=== PATIENT | female | born 1995 | race Caucasian/White ===

== ENCOUNTER 2017-07-07 16:20 | Emergency (ER) | payer OTHER ==
--- NOTE | 2017-07-07 16:39 | PDOC ---
Attending Attestation - Resident Resident Name: Phillip Marvinica - HPI HPI: 07/07/17 19:16 Pt presents to the ED complaining of nausea and vomiting after a night of heavy drinking. Denies fever or abdominal pain. - Physicial Exam PE: 07/07/17 19:17 Agree with resident exam. Abdomen is non tender on my exam. Patient is well appearing and in no acute distress. - Medical Decision Making 07/07/17 19:19 Pt presents to the ED complaining of persistent nausea and vomiting after an episode of heavy drinking. Symptoms are most consistent with gastritis, but will send labs to screen for biliary disease and electrolyte disturbance. Will check test. Will reassess.
[2017-07-07] MEDS ORDERED: ONDANSETRON 8 MG TABLET (FP) PO ONE ×2 (16:45→17:45)
[2017-07-07] MEDS ORDERED: SODIUM CHLORIDE 0.9% 500 ML INFUS.BAG IV ONE (16:45)
--- NOTE | 2017-07-07 16:51 | PDOC ---
History of Present Illness - General Stated Complaint: NAUSEA,VOMITING Time Seen by Provider: 07/07/17 16:39 History Source: Patient - History of Present Illness Initial Comments: 07/07/17 16:47 22 y.o. female with no reported PMH who presents c/o nausea + vomiting. Patient c/o multiple episodes of brown colored, non-bloody emesis since 9 a.m. this morning with no associated abdominal pain, GI (constipation/diarrhea) or (dysuria/hematuria) symptoms. Patient states she drank 2 cups of Walker this morning which she relates to her symptoms. Patient notes prior to this morning, her last alcoholic drink was last month. Patient cannot recall the last time she experienced acoholic hangover but denies any h/o DT's. Patient states her LMP was earlier this month and she denies any possibility of . NKDA Surgical: denies Social: denies nicotine, 3-4 alcoholic drinks/monthly, denies recreational drugs PMD: None Past History - Past Medical History Allergies/Adverse Reactions: Allergies Allergy/AdvReac Type Severity Reaction Status Date / Time No Known Allergies Allergy Verified 07/07/17 17:16 Home Medications: Ambulatory Orders NK [No Known Home Medication] 07/07/17 Review of Systems - Review of Systems Constitutional: No: Chills, Fever HEENTM: No: Blurred Vision, Double Vision Respiratory: No: Cough, Shortness of Breath Cardiac (ROS): No: Chest Pain, Lightheadedness, Palpitations, Syncope ABD/GI: Yes: Nausea, Poor Fluid Intake, Vomiting. No: Constipated, Diarrhea : No: Burning, Dysuria Neurological: No: Headache, Numbness Psychiatric: No: Anxiety, Depression *Physical Exam - Physical Exam Comments: 07/07/17 18:16 GENERAL: Awake, alert, and fully oriented, in no acute distress HEAD: No signs of trauma EYES: PERRLA, EOMI, sclera anicteric, conjunctiva clear ENT: Auricles normal inspection, hearing grossly normal, nares patent, oropharynx clear without exudates. Moist mucosa NECK: Normal ROM, supple, no lymphadenopathy, JVD, or masses LUNGS: Breath sounds equal, clear to auscultation bilaterally. No wheezes, and no crackles HEART: Regular rate and rhythm, normal S1 and S2, no murmurs, rubs or gallops ABDOMEN: Soft, nontender, normoactive bowel sounds. No guarding, no rebound. No masses EXTREMITIES: Normal range of motion, no edema. No clubbing or cyanosis. No cords , erythema, or tenderness BACK: No midline spinal tenderness in cervical/thoracic/lumbar region NEUROLOGICAL: Normal speech, cranial nerves intact, negative pronator drift, 5/ 5 strength in all 4 extremities, normal sensation to light touch in all 4 extremities, normal cerebellar exam, normal gait, normal reflexes and tone SKIN: Warm, Dry, normal turgor, no rashes or lesions noted. ED Treatment Course - LABORATORY CBC & Chemistry Diagram: 07/07/17 17:50 07/07/17 17:50 Medical Decision Making - Medical Decision Making 07/07/17 18:59 22 y.o. female presents with 1 day h/o brown colored emesis and nausea likely 2/ 2 to alcohol intoxication. Zofran for nausea + IV hydration. Will obtain CMP for any electrolyte derangement 2/2 to vomiting. Serum pending. Patient signed out to Dr. Baugh (Resident) and Dr. Melchor (Attending). *DC/Admit/Observation/Transfer Diagnosis at time of Disposition: Vomiting - Discharge Dispostion Disposition: HOME Condition at time of disposition: Good - Referrals - Patient Instructions Printed Discharge Instructions: DI for Vomiting -- Adult Additional Instructions: Please return if you have any new, worsening or concerning symptoms. Please follow up with your primary care physician this week. - Post Discharge Activity
[2017-07-07 17:20] VITALS: BP 130/88; PULSE 82; TEMP 97.2; BMI 24.1
[2017-07-07 18:09] LABS: BASO % 0.1 % (0-2.0); HEMATOCRIT 39.9 % (32.4-45.2); HEMOGLOBIN 13.3 GM/dL (10.7-15.3); LYMPH % 5.6 % (8-40); MCH 29.4 pg (25.7-33.7); MCHC 33.4 g/dl (32.0-36.0); MEAN CELL VOLUME 87.8 fl (80-96); MEAN PLT VOLUME 8.5 fl (7.5-11.1); MONO % 3.1 % (3.8-10.2); NEUT % 91.2 % (42.8-82.8); PLATELET COUNT 238 K/MM3 (134-434); RBC 4.54 M/mm3 (3.60-5.2); RDW 13.5 % (11.6-15.6); WHITE BLOOD COUNT 11.6 K/mm3 (4.0-10.0)
--- NOTE | 2017-07-07 19:36 | PDOC ---
*Physical Exam - Vital Signs Last Vital Signs Temp Pulse Resp BP Pulse Ox 97.2 F L 82 18 130/88 100 07/07/17 16:20 07/07/17 16:20 07/07/17 16:20 07/07/17 16:20 07/07/17 16:20 - Physical Exam Comments: 07/07/17 19:56 GENERAL: Awake, alert, and fully oriented, in no acute distress HEAD: No signs of trauma, normocephalic, atraumatic EYES: PERRLA, EOMI, sclera anicteric, conjunctiva clear ENT: Auricles normal inspection, hearing grossly normal, nares patent, oropharynx clear without exudates. Moist mucosa EXTREMITIES: Normal inspection, Normal range of motion, no edema. No clubbing or cyanosis. NEUROLOGICAL: Cranial nerves II through XII grossly intact. Normal speech, normal gait, no focal sensorimotor deficits SKIN: Warm, Dry, normal turgor, no rashes or lesions noted. ED Treatment Course - LABORATORY CBC & Chemistry Diagram: 07/07/17 17:50 07/07/17 17:50 - ADDITIONAL ORDERS Additional order review: Laboratory Results 07/07/17 07/07/17 17:50 17:50 Sodium Cancelled Potassium Cancelled Chloride Cancelled Carbon Dioxide Cancelled Anion Gap Cancelled BUN Cancelled Creatinine Cancelled Creat Clearance w eGFR Cancelled Random Glucose Cancelled Calcium Cancelled Total Bilirubin Cancelled AST Cancelled ALT Cancelled Alkaline Phosphatase Cancelled Total Protein Cancelled Albumin Cancelled Serum , Qual Cancelled 07/07/17 17:50 RBC 4.54 MCV 87.8 MCHC 33.4 RDW 13.5 MPV 8.5 Neutrophils % 91.2 H Lymphocytes % 5.6 L Monocytes % 3.1 L Eosinophils % 0.0 Basophils % 0.1 - Medications Given in the ED: ED Medications Discontinued Medications Generic Name Dose Route Start Last Admin Trade Name Freq PRN Reason Stop Dose Admin Ondansetron HCl 8 mg 07/07/17 16:45 07/07/17 17:52 Zofran - PO 07/07/17 16:46 8 mg ONCE ONE Administration Sodium Chloride 1,000 ml 07/07/17 16:45 07/07/17 17:52 Normal Saline - IV 07/07/17 16:46 1,000 ml ONCE ONE Administration Medical Decision Making - Medical Decision Making 07/07/17 19:[address] Marvin. Patient is 22F here today with several episodes of vomiting. CBC reassuring. CMP/Preg pending. 07/07/17 19:56 Patient refusing any blood draws or further workup. Asking to go home. Tolerating PO. Will discharge. *DC/Admit/Observation/Transfer Diagnosis at time of Disposition: Vomiting - Discharge Dispostion Disposition: HOME Condition at time of disposition: Good Admit: No - Referrals - Patient Instructions Printed Discharge Instructions: DI for Vomiting -- Adult Additional Instructions: Please return if you have any new, worsening or concerning symptoms. Please follow up with your primary care physician this week. - Post Discharge Activity
== END 2017-07-07 20:04 | disposition home or self-care (01) ==
LOC: JER 16:20
DX: F10.10 Alcohol abuse, uncomplicated (principal); R11.2 Nausea with vomiting, unspecified
CPT/HCPCS: 36415; 85025; 99283-25

== ENCOUNTER 2018-02-04 13:41 | Emergency (ER) | payer OTHER ==
[2018-02-04 14:04] VITALS: BP 120/80; PULSE 85; TEMP 99.7; BMI 25.9
--- NOTE | 2018-02-04 15:00 | PDOC ---
History of Present Illness - General Chief Complaint: Pain Stated Complaint: PAIN Time Seen by Provider: 02/04/18 14:54 History Source: Patient Exam Limitations: No Limitations - History of Present Illness Travel History: No Initial Comments: 02/04/18 14:55 Patient states took home test was positive. Has abdominal pain and cramping, breast tenderness, and has not had a normal menses since December 23. Denies fever however has nausea and some vomiting. G2,Ab1,P1 Timing/Duration: reports: getting worse Quality: reports: cramping Abdominal Pain Onset Location: reports: generalized abdomen Past History - Travel Traveled outside of the country in the last 30 days: No Close contact w/someone who was outside of country & ill: No - Past Medical History Allergies/Adverse Reactions: Allergies Allergy/AdvReac Type Severity Reaction Status Date / Time No Known Allergies Allergy Verified 02/04/18 14:03 Home Medications: Ambulatory Orders Vitamins (Sjr) - 1 tab PO DAILY #30 tablet 02/04/18 COPD: No - Suicide/Smoking/Psychosocial Hx Smoking History: Never smoked Have you smoked in the past 12 months: No Information on smoking cessation initiated: No Hx Alcohol Use: No Drug/Substance Use Hx: No Substance Use Type: Marijuana Review of Systems - Review of Systems Able to Perform ROS?: Yes Is the patient limited Guamanian proficient: Yes Constitutional: Yes: Symptoms Reported, See HPI, Malaise. No: Fever HEENTM: Yes: Symptoms Reported : Yes: Symptoms Reported, Dysuria Integumentary: Yes: See HPI. No: Symptoms Reported Neurological: Yes: See HPI. No: Symptoms reported All Other Systems: Reviewed and Negative *Physical Exam - Vital Signs Last Vital Signs Temp Pulse Resp BP Pulse Ox 99.7 F H 85 16 120/80 99 02/04/18 14:01 02/04/18 14:01 02/04/18 14:01 02/04/18 14:01 02/04/18 14:01 - Physical Exam General Appearance: Yes: Nourished, Appropriately Dressed, Mild Distress HEENT: positive: EFRA, Normal ENT Inspection, TMs Normal, Pharynx Normal Neck: negative: Tender Respiratory/Chest: positive: Lungs Clear Gastrointestinal/Abdominal: positive: Normal Bowel Sounds, Tender (mild diffuse / no rebound or guarding ), Soft Extremity: positive: Normal Capillary Refill, Normal Inspection, Normal Range of Motion Integumentary: positive: Normal Color, Warm, Pale 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 Patient encouraged to follow-up at [facility] or clinic for care. vitamins prescribed for her *DC/Admit/Observation/Transfer Diagnosis at time of Disposition: Qualifiers: Weeks of gestation: unspecified Qualified Code(s): Z34.90 - Encounter for supervision of normal , unspecified, unspecified trimester - Discharge Dispostion Disposition: HOME Condition at time of disposition: Stable Decision to Admit order: No - Prescriptions Prescriptions: Vitamins (Sjr) - 1 tab PO DAILY #30 tablet - Referrals Referrals: [facility] [Outside] - Patient Instructions Printed Discharge Instructions: DI for -- Discomforts and Remedies Additional Instructions: Rest, drink lots of fluids: Teas, water, soups Dianne iris, carbonated beverages for the bubbles May try peppermint teas Avoid heavy , spicy or fatty foods until symptoms have resolved Continue [id number] medications for symptomatic relief Tylenol or Motrin for fever and pain vitamins daily Followup with private physician in one to 2 days as needed Return to emergency department for worsened symptoms, fevers, dehydration - Post Discharge Activity Forms/Work/School Notes: Back to Work
[2018-02-04 15:07] LABS: HCG,QUALITATIVE URINE Positive
[2018-02-04 15:25] LABS: URINE APPEARANCE CLOUDY; URINE BILIRUBIN NEGATIVE (<2.0 mg/dL); URINE COLOR YELLOW; URINE GLUCOSE (UA) NEGATIVE (NEGATIVE); URINE KETONE NEGATIVE (NEGATIVE); URINE LEUK ESTERASE NEGATIVE (NEGATIVE); URINE NITRITE NEGATIVE (NEGATIVE); URINE PROTEIN NEGATIVE (NEGATIVE); URINE UROBILINOGEN NEGATIVE mg/dL (0.2-1.0)
== END 2018-02-04 15:48 | disposition home or self-care (01) ==
LOC: JERFT 13:41
DX: Z34.90 Encounter for supervision of normal pregnancy, unspecified, unspecified trimester (principal)
CPT/HCPCS: 81003; 84703; 99281-25

== ENCOUNTER 2018-07-02 11:56 | Emergency (ER) | payer OTHER ==
[2018-07-02 12:07] VITALS: BP 115/50; PULSE 105; TEMP 98.3; BMI 27.9
[2018-07-02] MEDS ORDERED: BACITRACIN 15 GM TUBE TOPICAL OINTMENT ONE (12:32)
[2018-07-02] MEDS ORDERED: BACITRACIN 15 GM TUBE TOPICAL OINTMENT TP ONE (12:35)
--- NOTE | 2018-07-02 12:41 | PDOC ---
History of Present Illness - General Chief Complaint: Wound Stated Complaint: RT FOOT INJURY Time Seen by Provider: 07/02/18 12:16 History Source: Patient Exam Limitations: No Limitations - History of Present Illness Initial Comments: 07/02/18 8 pain to left great toe. States received a pedicure and April and developed appear neck ill infection. Has been self treating and including excision of ingrown toenails. But states has progressively become more painful and more swollen with an extra growth to the lateral aspect of her left great toe. Denies purulent drainage, but is painful. Occurred: reports: other (3 mos ago - developed a paronychia to left great toe and has been trying to exercise ingrown toenail since. States is progressively worsened where she has tenderness in an overgrowth now. Denies fever, denies purulent drainage at site.) Severity: reports: mild Pain Location: reports: lower extremity Associated Symptoms (Fall): denies symptoms Past History - Travel Traveled outside of the country in the last 30 days: No Close contact w/someone who was outside of country & ill: No - Past Medical History Allergies/Adverse Reactions: Allergies Allergy/AdvReac Type Severity Reaction Status Date / Time No Known Allergies Allergy Verified 07/02/18 12:04 Home Medications: Ambulatory Orders Vitamins (Sjr) - 1 tab PO DAILY #30 tablet 02/04/18 COPD: No - Suicide/Smoking/Psychosocial Hx Smoking History: Former smoker Have you smoked in the past 12 months: No Information on smoking cessation initiated: No Hx Alcohol Use: No Drug/Substance Use Hx: No Substance Use Type: Marijuana *Physical Exam - Vital Signs Last Vital Signs Temp Pulse Resp BP Pulse Ox 98.3 F 105 H 18 115/50 L 98 07/02/18 12:05 07/02/18 12:05 07/02/18 12:05 07/02/18 12:05 07/02/18 12:05 - Physical Exam General Appearance: Yes: Nourished, Appropriately Dressed, Apparent Distress HEENT: positive: EFRA, Normal ENT Inspection Neck: negative: Tender Extremity: positive: Normal Capillary Refill, Normal Range of Motion, Other ( has overgrowth of skin consistent with a pyogenic granuloma to the medial aspect of left great toenail. No fluctuance, no purulent drainage, has full range of motion and no streaking.). 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, Fully Oriented, Alert, Normal Mood/ Affect, Normal Response, Motor Strength 5/5 Moderate Sedation - Procedure Monitoring Vital Signs: Procedure Monitoring Vital Signs Temperature 98.3 F 07/02/18 12:05 Pulse Rate 105 H 07/02/18 12:05 Respiratory Rate 18 07/02/18 12:05 Blood Pressure 115/50 L 07/02/18 12:05 O2 Sat by Pulse Oximetry (%) 98 07/02/18 12:05 *DC/Admit/Observation/Transfer Diagnosis at time of Disposition: Granuloma, pyogenic - Discharge Dispostion Disposition: HOME Condition at time of disposition: Stable Decision to Admit order: No - Referrals Referrals: Mayuri Mayorga MD [Primary Care Provider] - Lani Wiseman MD [Staff Physician] - - Patient Instructions Printed Discharge Instructions: DI for Paronychia Additional Instructions: Rest, keep foot elevated Avoid heavy lifting or strenuous activity until healed Soak finger every 2-3 hours while awake for the next 2-3 days to keep continue to allow drainage Reapply bacitracin ointment and bulky dressing after each soaking May use Tylenol for pain relief Followup with private physician in one to 2 days for wound check as needed Return immediately to emergency department or private doctor's for worsening redness, swelling, pain, streaking - Post Discharge Activity
== END 2018-07-02 12:46 | disposition home or self-care (01) ==
LOC: JERFT 11:56
DX: L98.0 Pyogenic granuloma (principal)
CPT/HCPCS: 99281-25

== ENCOUNTER 2018-10-11 11:20 | Inpatient (IN) | payer OTHER | END 2018-10-14 12:30 | disposition home or self-care (01) | LOC: JDEL 11:20 → J3W 10-13 00:45 → JLDR 10-12 03:30 ==

== ENCOUNTER 2019-06-18 05:30 | Emergency (ER) | payer OTHER ==
[2019-06-18 06:18] VITALS: BMI 24.3
[2019-06-18] MEDS ORDERED: ACETAMINOPHEN 500 MG TABLET (FP) PO ONE (07:24)
[2019-06-18] MEDS ORDERED: ACETAMINOPHEN 325 MG TABLET (FP) ONE (07:27)
[2019-06-18] MEDS ORDERED: IBUPROFEN 600 MG TABLET (FP) PO ONE ×2 (07:40→07:44)
--- NOTE | 2019-06-18 07:40 | PDOC ---
History of Present Illness - General History Source: Patient Exam Limitations: Clinical Condition - History of Present Illness Initial Comments: 06/18/19 07:36 Patient with no significant past medical history present with complaint of 3- day history of nasal congestion, fevers, dry cough, body aches and bilateral ear pain which she describes as pressure in the ear. Patient family members sick with similar symptoms. Patient did not get a flu vaccine. Denies recent travel. Patient has not taken anything for symptoms. Denies sore throat, nausea, vomiting, abdominal pain, chest pain, dizziness. Denies any other symptoms Is this a multiple visit Asthma Patient?: No Timing/Duration: other (3 days) <Milton Montano - Last Filed: 06/18/19 08:02> <Wilian Melchor - Last Filed: 06/18/19 14:53> - General Chief Complaint: Ear Problem Stated Complaint: CONGESTION,EARACHE Time Seen by Provider: 06/18/19 05:35 Past History - Past Medical History Asthma: No Cancer: No Cardiac Disorders: No COPD: No Diabetes: No HTN: No Seizures: No Thyroid Disease: No - Psycho Social/Smoking Cessation Hx Smoking History: Never smoked Have you smoked in the past 12 months: No Information on smoking cessation initiated: No Hx Alcohol Use: No Drug/Substance Use Hx: No Substance Use Type: Marijuana Hx Substance Use Treatment: No <Milton Montano - Last Filed: 06/18/19 08:02> <Wilian Melchor - Last Filed: 06/18/19 14:53> - Past Medical History Allergies/Adverse Reactions: Allergies Allergy/AdvReac Type Severity Reaction Status Date / Time No Known Allergies Allergy Verified 06/18/19 06:17 Home Medications: Ambulatory Orders Vitamins (Sjr) - 1 tab PO DAILY #30 tablet 02/04/18 Benzonatate [Tessalon Pearls -] 100 mg PO Q8H PRN #21 capsule 06/18/19 Ipratropium [place] 2 spray NS BID PRN 5 Days #1 spray 06/18/19 Montelukast Na [Singulair -] 10 mg PO DAILY #7 tablet 06/18/19 Review of Systems - Review of Systems Able to Perform ROS?: Yes Is the patient limited Tristanian proficient: No Constitutional: Yes: Chills, Fever, Malaise HEENTM: Yes: Symptoms Reported, See HPI, Ear Pain (b/l ear pressure), Nose Congestion. No: Eye Pain, Blurred Vision, Tearing, Recent change in vision, Double Vision, Cataracts, Ocular Prothesis, Ear Discharge, Nose Pain, Tinnitus, Nose Bleeding, Hearing Loss, Throat Pain, Throat Swelling, Mouth Pain, Dental Problems, Difficulty Swallowing, Mouth Swelling, Other Respiratory: Yes: Symptoms reported, See HPI, Cough. No: Orthopnea, Shortness of Breath, SOB with Exertion, SOB at Rest, Stridor, Wheezing, Productive cough, Hemoptysis, Other Cardiac (ROS): No: Symptoms Reported, See HPI, Chest Pain, Edema, Irregular Heart Rate, Lightheadedness, Palpitations, Syncope, Chest Tightness, Other ABD/GI: No: Symptoms Reported, See HPI, Abd. Pain w/ defecation, Blood Streaked Bowels, Constipated, Diarrhea, Difficulty Swallowing, Nausea, Poor Appetite, Vomiting, Abdominal cramping Musculoskeletal: No: Symptoms Reported Integumentary: No: Symptoms Reported Neurological: No: Symptoms reported, Headache, Numbness, Dizziness All Other Systems: Reviewed and Negative <Milton Montano Rian - Last Filed: 06/18/19 08:02> *Physical Exam - Vital Signs Last Vital Signs Temp Pulse Resp BP Pulse Ox 103.1 F H 121 H 20 115/56 L 97 06/18/19 05:39 06/18/19 05:39 06/18/19 05:39 06/18/19 05:39 06/18/19 05:39 - Physical Exam 06/18/19 07:39 GENERAL: Well developed, well nourished. Awake and alert. No acute distress. HEENT: Bilateral nasal congestion. Normocephalic, atraumatic. PERRLA, EOMI. No conjunctival pallor. Sclera are non-icteric. Moist mucous membranes. Oropharynx is clear. NECK: Supple. Full ROM. CARDIOVASCULAR: Regular rate and rhythm. No murmurs, rubs, or gallops. Distal pulses are 2+ and symmetric. PULMONARY: No evidence of respiratory distress. Lungs clear to auscultation bilaterally. No wheezing, rales or rhonchi. ABDOMINAL: Soft. Non-tender. Non-distended. No rebound or guarding. No organomegaly. Normoactive bowel sounds. MUSCULOSKELETAL Normal range of motion at all joints. SKIN: Warm and dry. Normal capillary refill. No rashes. No cyanosis NEUROLOGICAL: Alert, awake, appropriate. Gait is normal without ataxia. PSYCHIATRIC: Cooperative. Good eye contact. Appropriate mood General Appearance: Yes: Nourished, Appropriately Dressed. No: Apparent Distress <Milton Montano - Last Filed: 06/18/19 08:02> - Vital Signs Last Vital Signs Temp Pulse Resp BP Pulse Ox 100.0 F H 110 H 18 97/60 96 06/18/19 08:15 06/18/19 08:15 06/18/19 08:15 06/18/19 08:15 06/18/19 08:15 <Wilian Melchor - Last Filed: 06/18/19 14:53> ED Treatment Course - Medications Given in the ED: ED Medications Discontinued Medications Generic Name Dose Route Start Last Admin Trade Name Freq PRN Reason Stop Dose Admin Acetaminophen 1,000 mg 06/18/19 07:24 06/18/19 07:31 Tylenol - PO 06/18/19 07:25 1,000 mg ONCE ONE Administration <Milton Montano - Last Filed: 06/18/19 08:02> - Medications Given in the ED: ED Medications Discontinued Medications Generic Name Dose Route Start Last Admin Trade Name Freq PRN Reason Stop Dose Admin Acetaminophen 1,000 mg 06/18/19 07:24 06/18/19 07:31 Tylenol - PO 06/18/19 07:25 1,000 mg ONCE ONE Administration Ibuprofen 600 mg 06/18/19 07:40 06/18/19 07:48 Motrin - PO 06/18/19 07:41 600 mg ONCE ONE Administration <Wilian Melchor - Last Filed: 06/18/19 14:53> Medical Decision Making - Medical Decision Making 06/18/19 07:37 Patient with no significant past medical history present with complaint of 3- day history of nasal congestion, fevers, dry cough, body aches and bilateral ear pain which she describes as pressure in the ear. Patient family members sick with similar symptoms. Patient did not get a flu vaccine. Denies recent travel. Patient has not taken anything for symptoms. Denies sore throat, nausea, vomiting, abdominal pain, chest pain, dizziness. Denies any other symptoms Exam significant for fever 103.1 F with bilateral nasal congestion otherwise normal exam. Lungs clear to auscultation bilateral. Normal ear exam with no erythema and bilateral ears. Symptoms likely flu versus viral infection. Tylenol 1 g p.o. ordered for fever. Rapid flu test ordered to rule out flu 06/18/19 08:02 Rapid flu positive for influenza B. Patient already out of window treatment and will treat conservatively for viral URI on Tessalon Perles as needed for cough, Atrovent nasal spray for nasal congestion and Singulair with advised to alternate between Tylenol Motrin as needed for fever and increase fluid intake with PCP follow-up <Milton Montano - Last Filed: 06/18/19 08:02> - Medical Decision Making 06/18/19 14:53 I reviewed the case of the mid-level practitioner and was available for consultation while in the emergency department <Wilian Melchor - Last Filed: 06/18/19 14:53> Discharge - Discharge Information Problems reviewed: Yes - Admission No <Milton Montano - Last Filed: 06/18/19 08:02> <Wilian Melchor - Last Filed: 06/18/19 14:53> - Discharge Information Clinical Impression/Diagnosis: Influenza, Viral URI with cough Condition: Stable Disposition: HOME - Additional Discharge Information Prescriptions: Benzonatate [Tessalon Pearls -] 100 mg PO Q8H PRN #21 capsule PRN Reason: Cough Ipratropium [place] 2 spray NS BID PRN 5 Days #1 spray PRN Reason: nasal congestion Montelukast Na [Singulair -] 10 mg PO DAILY #7 tablet - Patient Discharge Instructions Patient Printed Discharge Instructions: DI for Influenza -- Adult Additional Instructions: Your test came back for positive of influenza B which is likely the cause of your symptoms. You are already out of the window treatment given his symptoms being more than 3 days. Take prescribed medication as prescribed for cough and congestion. Alternate between Tylenol and Motrin as needed for fever and increase fluid intake. Follow-up with your primary care as needed - Post Discharge Activity Work/Back to School Note: Back to Work
[2019-06-18 08:19] VITALS: BP 97/60; PULSE 110; TEMP 100
== END 2019-06-18 08:24 | disposition home or self-care (01) ==
LOC: JER 05:30
DX: J11.1 Influenza due to unidentified influenza virus with other respiratory manifestations (principal); J06.9 Acute upper respiratory infection, unspecified; B97.89 Other viral agents as the cause of diseases classified elsewhere
CPT/HCPCS: 87804; 99283-25

== ENCOUNTER 2024-08-06 02:15 | Inpatient (IN) | payer OTHER ==
[2024-08-06 02:56] VITALS: BMI 30.4
[2024-08-06] MEDS: ELECTROLYTE-148 SOLN 1,000 ML IV SCH (03:00)
[2024-08-06] MEDS ORDERED: BUTORPHANOL TARTRATE 2 MG/ML VIAL ONE (03:25)
[2024-08-06] MEDS ORDERED: PROMETHAZINE HCL 25 MG/1 ML VIAL ONE (03:25)
[2024-08-06] MEDS: PROMETHAZINE HCL 25 MG/1 ML VIAL IVPB ONE (03:33)
[2024-08-06] MEDS: BUTORPHANOL TARTRATE 1 MG/ML VIAL IVPB ONE (03:33)
[2024-08-06 03:35] LABS: BASOPHILS # 0.03 x10^3/uL (0.01-0.08); EOSINOPHIL % 0.4 % (0.7-5.8); EOSINOPHILS # 0.04 x10^3/uL (0.04-0.36); HEMATOCRIT 33.4 % (34.1-44.9); HEMOGLOBIN 10.9 g/dL (11.2-15.7); MCHC 32.6 g/dl (32.2-35.5); MEAN CELL VOLUME 87.4 fl (79.4-94.8); MONOCYTE % 6.8 % (4.7-12.5); PLATELET COUNT 140 x10^3/uL (182-369); RDW 14.6 % (12.1-16.5)
[2024-08-06 03:42] LABS: INR 1.06 (0.83-1.09); PROTHROMBIN TIME (PATIENT) 11.5 SEC (9.7-13.0)
[2024-08-06 03:45] LABS: ACTIVATED PTT 28.6 SECONDS (25.2-36.5)
[2024-08-06 03:56] LABS: POTASSIUM 4.1 mmol/L (3.5-5.1)
[2024-08-06 03:58] LABS: CALCIUM 8.8 mg/dL (8.5-10.1)
[2024-08-06 03:59] LABS: BLOOD UREA NITROGEN 8.8 mg/dL (7-18)
[2024-08-06 04:02] LABS: CREATININE 0.5 mg/dL (0.55-1.3)
[2024-08-06] MEDS ORDERED: LIDOCAINE HCL 1% PRESERVATIVE FREE - 30ML VIAL ONE (06:43)
[2024-08-06] MEDS ORDERED: OXYTOCIN 20 UNITS in 0.9% NS 20 UNIT/1,000 ML INFUS.BAG IV ONE (06:43)
[2024-08-06] MEDS ORDERED: OXYTOCIN 30 UNITS in 0.9% NS 30 UNIT/500 ML INFUS.BAG IVPB ONE (07:32)
[2024-08-06] MEDS ORDERED: FENTANYL/BUPIVACAINE/NS/PF - PCEA - 50 ML DISP.SYRIN EP ONE (08:05)
[2024-08-06] MEDS: FENTANYL/BUPIVACAINE/NS/PF - PCEA - 50 ML DISP.SYRIN EP SCH (08:30)
[2024-08-06 11:09] LABS: COCAINE, UR NEGATIVE (NEGATIVE); METHADONE, UR NEGATIVE (NEGATIVE); URINE BARBITURATES NEGATIVE (NEGATIVE); URINE BENZODIAZEPINES NEGATIVE (NEGATIVE)
[2024-08-06 11:10] LABS: OPIATES, URI NEGATIVE (NEGATIVE); PHENCYCLIDINE,URINE NEGATIVE (NEGATIVE)
[2024-08-06 11:25] LABS: URINE AMPHETAMINES NEGATIVE (NEGATIVE)
[2024-08-06] MEDS ORDERED: IBUPROFEN 600 MG TABLET (FP) PO PRN (13:19)
[2024-08-06] MEDS ORDERED: BENZOCAINE 20% 57 GM BOTTLE TP PRN (13:19)
[2024-08-06] MEDS ORDERED: BENZOCAINE 28 GM HEMORRHOIDAL OINTMENT TP PRN (13:19)
[2024-08-06] MEDS ORDERED: WITCH HAZEL 50% (TUCKS) 40 PAD/JAR PAD TP PRN (13:19)
[2024-08-06] MEDS ORDERED: BISACODYL 10 MG SUPP.RECT RC PRN (13:19)
[2024-08-06] MEDS: OXYTOCIN 20 UNITS in 0.9% NS 20 UNIT/1,000 ML INFUS.BAG IV SCH (13:20)
[2024-08-06] MEDS ORDERED: ACETAMINOPHEN 325 MG TABLET (FP) ONE (15:56)
[2024-08-06] MEDS: ACETAMINOPHEN 325 MG TABLET (FP) PO PRN (16:08)
[2024-08-07 07:27] LABS: ABSOLUTE IMMATURE GRANULOCYTES 0.11 x10^3/uL (0.0-0.031); BASOPHILS # 0.03 x10^3/uL (0.01-0.08); EOSINOPHILS # 0.13 x10^3/uL (0.04-0.36); HEMATOCRIT 31.1 % (34.1-44.9); HEMOGLOBIN 10.2 g/dL (11.2-15.7); MCHC 32.8 g/dl (32.2-35.5); MEAN CELL VOLUME 87.6 fl (79.4-94.8); MEAN PLT VOLUME 9.5 fl (9.4-12.3); MONOCYTE # 0.79 x10^3/uL (0.24-0.86); MONOCYTE % 6.3 % (4.7-12.5); PLATELET COUNT 145 x10^3/uL (182-369); RDW 14.7 % (12.1-16.5)
[2024-08-07 11:01] LABS: HIV INTERPRETATION NEGATIVE (NEGATIVE)
[2024-08-07] MEDS ORDERED: SENNOSIDES/DOCUSATE COMBO (SENNA PLUS) TABLET (UD) PO PRN (22:00)
[2024-08-08 10:54] VITALS: BP 120/81; PULSE 80; RESP 18; TEMP 98
== END 2024-08-08 13:00 | disposition home or self-care (01) | DRG 560 ==
LOC: JLDR 02:15 → J3W 16:08
PROVIDERS: ADMIT Obstetrics & Gynecology; ATTEND Obstetrics & Gynecology
PROC: 10E0XZZ Delivery of Products of Conception, External Approach (ICD-10-PCS; principal; 2024-08-06)
DX: O99.214 Obesity complicating childbirth (principal); Z3A.39 39 weeks gestation of pregnancy; Z37.0 Single live birth
CPT/HCPCS: 36415; 59409; 80048; 80307; 85025; 85610; 85730; 86780; 86850; 86900; 86901; 87389